=== PATIENT | male | born 1980 | race Caucasian/White ===

== ENCOUNTER 2019-12-07 22:55 | Inpatient (IN) | payer OTHER, SELFPAY ==
[2019-12-07 23:17] VITALS: BP 131/70; PULSE 76; RESP 17; TEMP 36.8; O2SAT 99; BMI 21.2
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
[2019-12-07] MEDS: ONDANSETRON 4 MG/2 ML INJ IV (23:46)
[2019-12-07] MEDS: SODIUM CHLORIDE 0.9% 1,000 ML 1000 ML IV (23:47)
[2019-12-07] MEDS: MORPHINE 4 MG/ML INJ IV (23:49)
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
[2019-12-07 23:58] LABS: Hematocrit 37.5 % (41-53); Hemoglobin 12.3 g/dL (13.5-17.5); Mean Corpuscular HGB Conc 32.8 % (30-36); Mean Corpuscular Hemoglobin 27.2 PG (26-34); Mean Corpuscular Volume 82.7 fL (80-100); Platelet Count 738 X10^3/uL (150-400); Red Blood Cell Count 4.53 X10^6/uL (4.5-5.9); Red Cell Distribution Width 15.1 % (11.6-14.8); White Blood Cell Count 9.1 X10^3/uL (4.5-11.0)
[2019-12-08] VITALS (7 sets, daily range): BP systolic 110–114; BP diastolic 63–69; PULSE 45–57; RESP 15–48; TEMP 36.1–36.6; O2SAT 97–100; BMI 20.8
[2019-12-08 00:04] LABS: Add Manual Diff / Slide Review YES; Alanine Aminotransferase 32 IU/L (<50); Albumin 3.4 g/dL (3.5-5.0); Alkaline Phosphatase 98 U/L (38-126); Aspartate Aminotransferase 30 IU/L (17-59); BUN Creatinine Ratio 28.6 (6-22); Bilirubin Total 0.4 mg/dL (0.2-1.3); Blood Urea Nitrogen 16 mg/dL (9-20); Calcium 8.6 mg/dL (8.4-10.2); Carbon Dioxide 29 mmol/L (22-32); Chloride 103 mmol/L (98-107); Estimated Glomerular Filt Rate > 60.0 mL/min (>60); Globulin 3.4 g/dL (1.7-4.1); Glucose 133 mg/dL (70-100); HEMOLYSIS 31 (0-50); Lipase 27 U/L (23-300); Sodium 135 mmol/L (137-145); Total Protein 6.8 g/dL (6.3-8.2)
[2019-12-08 01:14] LABS: Neutrophils Absolute Manual 2730 /uL (3000-5900); Total Cells Counted 100
[2019-12-08 01:15] LABS: Anisocytosis 1+
[2019-12-08 01:31] LABS: Platelet Estimate Increased on smear
[2019-12-08 01:36] LABS: Prothrombin Time 11.5 SECONDS (10.1-12.7)
[2019-12-08 01:38] LABS: PTT Partial Thromboplastin Tim 31 SECONDS (26.4-36.2)
[2019-12-08] MEDS: MORPHINE 2 MG/ML INJ IV ×6 (02:11→22:40)
[2019-12-08 02:24] LABS: COVID19 -Nasal RAPID Negative (Negative)
[2019-12-08] MEDS: SODIUM CHLORIDE 0.9% 1,000 ML 125 ML IV ×3 (02:28→09:46)
--- NOTE | 2019-12-08 03:04 | PC.NURSE ---
Pt. arrived to the unit via wheelchair. Pt. is alert and oriented, afebrile, lungs CTA slightly diminished on the bases and tends to breath shallow due to pain from his necrotic spleen. Pt. denies N/V, abd. tender with pain rate bet- 3-4/10 and referred pain to his left shoulder with same pain rating. Pt. had Morphine in ER just before transfer to the floor. He states he can tolerate 5/10 pain. Informed pt. that he can have Morphine IV q4h which with be next due around 6 am. Oriented to room, bed control and call light use and instructed to call if need to get OOB to use the restroom. Pt. reluctantly agreed to calling for help to use the bathroom stating he is capable of doing so. Call light within reach, and informed pt. also that he can not have anything to eat or drink for possible surgery in am. Pt. ok with it.
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
[2019-12-08] MEDS: MAGNESIUM HYDROXIDE 30 ML UDC PO (10:26)
[2019-12-08] MEDS: IBUPROFEN 600 MG TABLET PO (10:26)
[2019-12-08] MEDS: DEXTROSE 5%-LACTATED RINGERS 1,000 ML 84 ML IV ×2 (10:34→20:48)
[2019-12-08 12:15] LABS: Procalcitonin < 0.05 ng/mL (<0.5)
[2019-12-08] MEDS: MAGNESIUM CITRATE 300 ML SOLUTION 150 ML PO (12:34)
--- NOTE | 2019-12-08 15:46 | DIET.PN ---
Addendum entered by Elizabeth Watters 12/08/19 16:12: Sending ONS Satya c clear liquid diet to support PCM Original Note: Dietary Progress Note Assessment: 39y M admitted as abd drain was not working referred to nutrition for reported 20# weight loss over past 1.5mo. Pt fell off a roof 2mo ago leading to vertebral fx and splenic injury later found to be splenic necrosis for which a drain was placed. Pt left AMA from previous facility to come to [place] to be with family and admitted for faulty drain and px. Pt reports weight loss due to all the issues with his abdominal surgeries. Pt reports being confident once the drain is fixed he will eat normally again and doesn't feel worried. Pt states he is hungry and is not looking forward to another meal of jello and broth before surgery. Pt is current every day cigarette smoker. HT: 182.8cm WT: 69.7kg UBW: 78kg (-11.5% unintentional in 6w, severe) BMI: 20.8 Labs: Cr 0.56 L, alb 3.4 L MNA: 8 at risk for malnutrition Luis Carlos: 16 Nutrition Diagnosis: Severe Acute PCM r/t poor appetite and surgical complications aeb 11.5% unintentional weight loss in 6w (severe), BMI 20.8 (borderline low for age), pt reports abd px and <50% EERs for >1w, pt currently NPO awaiting third abd surgery in 6w to address necrotic spleen, nutrition related lab values Cr 0.56 L, alb 3.4 L, mild to moderate subcutaneous fat losses. Interventions: 1. Discussed meal ordering at hospital once pt is able to eat. 2. Recc high pro MNT for 2w post-surgical to support nutritional repletion and wound healing. Diet Order: NPO awaiting surgery EER: 2,000 kcal (30kcal/kg per PCM), 90g PRO (1.3g/kg per PCM) Monitoring/Evaluations: if POs <75%, recc ONS Ensure or high pro yogurt smoothie from kitchen
--- NOTE | 2019-12-08 19:03 | PC.NURSE ---
Patient resting in bed most of the shift. Up to bathroom independently. Lower abd pain controlled well with IVP morphine. Sanya drain with scant amount of bloody drainage. Patient tolerating clear liquid diet well. Patient has been A&O, calm and cooperative. Patient is resting in bed at this time.
[2019-12-09] VITALS (17 sets, daily range): BP systolic 102–167; BP diastolic 57–97; PULSE 47–67; RESP 10–22; TEMP 36.1–36.8; O2SAT 96–100; BMI 20.8
[2019-12-09] MEDS: MORPHINE 2 MG/ML INJ IV ×2 (02:54→07:20)
--- NOTE | 2019-12-09 08:48 | PC.NURSE ---
Addendum entered by Jennifer Babcock R.N. 12/09/19 13:47: Pt to room 229 from surgery at 1245. Awake and oriented x3, intermittently moaning/tearful, reporting pain to abdomen. Medicated with toradol per emar. EVELIN drains (left and right) both compressed and patent draining serosanguinous fluid. Dressings to abdomen C/D/I. SpO2 94-98% on RA. Call light within reach and bed alarm on. Original Note: Day Shift Pt to surgery at ~ 0840. Signed consent noted on chart.
[2019-12-09] MEDS: LACTATED RINGERS 1,000 ML 42 ML IV ×2 (08:53→11:11)
[2019-12-09] MEDS: CEFAZOLIN 2 GM/100 ML FROZ.PIGGY IV (09:25)
[2019-12-09] MEDS: BUPIVACAINE 0.5% (PF) VIAL 30 ML INJ (10:03)
--- NOTE | 2019-12-09 10:08 | SUR.OPER ---
Lithotomy on padded OR bed, head on pillow, arms secured on padded arm boards at <90 degrees abduction. Legs secured in padded yellow fins stirrups.
[2019-12-09] MEDS: ONDANSETRON 4 MG/2 ML INJ IV (11:56)
--- NOTE | 2019-12-09 11:57 | PM.OP.1 ---
Operative Date/Time/Diagnoses Date of procedure: 12/09/19 Time of procedure: 11:57 Pre-op diagnosis: History of splenic trauma with sergio splenic hematoma chronic verses abscess. 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 Same procedure as scheduled: Yes Indications: Abdominal pain with a drain in the left flank. CT revealed thickened material that is unlikely to be treated with a drain. The patient was taken to the operating room after evacuating his intestines with a bowel prep. Surgeon: Sergio Stockton Click Yes if Unassisted: Yes Anesthesia Type: General Operative Notes Findings: Fairly large collection of necrotic appearing material probably representing portions of spleen and an old hematoma. Patient also had a fair amount of old blood tinged fluid in the peritoneal cavity on entrance. Drains were placed in the left upper quadrant and in the pelvis. Closure Type: primary Specimen(s): none sent Prosthetic devices, grafts, tissues, transplants, or devices: None Applied: drain(s) (TWO 10 mm Douglas-Ambrocio drains. One in left upper quadrant 1 in the pelvis.) Estimated Blood Loss (mL): 20 Blood products transfused: none Procedure in detail: The patient was placed supine on the operating room table and underwent general endotracheal anesthesia. A [place] was placed and he was put in low lithotomy and prepped and draped in the usual fashion. The drain was prepped with chlorhexidine alcohol after scrubbing his entire abdomen and the drain with Betadine soap. In draping however the drain insertion site was excluded from the operative field. Local anesthetic was infiltrated beneath the umbilicus and a curvilinear incision was made. Was carried down under direct vision in the peritoneal cavity. Stay sutures of 0 Vicryl were placed in the fascia. An 11 mm cannula was inserted into the abdomen. The abdomen contained a fair amount of old blood tinged fluid. Much of it resided in the pelvis. I could not see the drain coming through the abdominal wall. Two additional ports were placed. One was in the midline in the upper abdomen and 1 is send her the costal margin on the left. Using principally blunt dissection I took down adhesions of omentum to the sidewall and to this cavity located in the left upper quadrant. The cavity wall was apparent and quite thickened. I was able to enter a cavity without difficulty and it contained no free fluid.We then loosened the string on the pigtail catheter and removed the catheter. There was no purulence anywhere in the left upper quadrant or in the cavity. There was appearing tissue however. This probably also represented some old hematoma which had organized. I widened the opening into this cavity and suction the material out. I then carefully irrigated and suctioned the fluid free. I decided to remove the anterior wall of this cavity so it would not close and seal. This was done with sharp dissection. There was no bleeding cutting into this wall of the collection. I took a fair amount of it but not all of it off the diaphragm using blunt dissection. There was also omentum attached medially which was taken down bluntly. Feeling that I had removed as much as safely could be accomplished (I left the back wall of this cavity intact due to the fact it was probably attached in places to the residual spleen as well as to stomach and possibly colon.) I took down some adhesions in the right upper quadrant and a portion of the falciform ligament which appeared to be tenting the liver and holding it up in the air. With this accomplished there were no other significant adhesions in the abdomen. I irrigated both upper quadrants and suction free the fluid. I irrigated the mid abdomen and allow the fluid to flow into the pelvis where suctioned it out. I decided to place a drain in the pelvis in the left upper quadrant. I used the left subcostal port site for the drain in left upper quadrant and created a low midline port site from which the pelvic 10 mm Douglas-Ambrocio egress through the skin. These were secured with 3 0 nylon sutures. The air was evacuated and the ports removed. The 0 Vicryl sutures were elevated at the umbilical fascia and a 2 0 PDS was placed between them. The Vicryl sutures were tied along with the PDS. The wounds(they remain 2, the umbilical and the upper midline incision) were closed with a 4 0 Vicryl subcuticular stitch and Steri-Strips. Dressings were applied in all areas. An additional 2 0 PDS was placed to attempt to control little bit of skin is oozing around the left upper quadrant drains site. The patient was awakened, extubated and taken the recovery area in good condition. Complications: none Post-operative Condition: stable Disposition: PACU Plan for aftercare: To the floor
[2019-12-09] MEDS: fentaNYL 100 MCG/2 ML INJ IV ×2 (12:00→12:07)
[2019-12-09] MEDS: LORazepam 2 MG/ML INJ 0.25 MG IV (12:05)
[2019-12-09] MEDS: OXYCODONE IR 5 MG TABLET PO ×2 (12:15→12:34)
--- NOTE | 2019-12-09 12:38 | CM.DANOTE ---
Addendum entered by Leni Gray R.N. 12/09/19 14:00: Patient is back in his room post surgery, but has been in pain, and resting at this time. New drains placed. Will attempt to check in with patient tomorrow. Original Note: DCP: Case received, EMR reviewed. Attempted to meet with patient, but he is currently in surgery. Placed name of this funeral planner on white board in patient's room. Obtained history from patient's chart, ER visit and history and physical. Was also able to review collection note from admission counselor. DCP assessment completed based on the information currently available. Patent is a 39 year old male who admitted yesterday morning to the care of the hospital/surgical team. PCP: Unknown at this time. Payer: [place] Medicaid. Patient came to the hospital via private vehicle secondary to having abdominal pain, and concerns about his abdominal drain. According to notes, patient had originally fell from a roof approximately 6 weeks ago, and was seen in [place], [place]. His spleen was embolized and he was having ongoing bleeding. After this was controlled, he was discharged approximately a month later. He then went to a healthcare provider in [place], where he currently resides, and he noted fluid collection in his left upper quadrant. A percutaneous drain was placed, and according to note, signed himself out AMA with a drain in place to come here to [place] to see family. No family is listed in contact, only friends. Patient came here with abdominal pain and indicated that the drain was not working. He is currently in surgery. Have not been able to converse with patient as of yet, but he is independent at baseline. He does have [place] Medicaid, and he does not qualify for [employer] here in this state. Billing department is working with [place] Medicaid and have attempted to reach out to them about coverage for services. Have not yet heard updated. According to notes, patient did not have his insurance card with him. P: DCP to continue to follow, and will attempt to see patient after surgery. May not be today, will depend upon his recovery. Will be available for any needs. Leni Gray RN/Cement Breaker
[2019-12-09] MEDS: LACTATED RINGERS 1,000 ML 125 ML IV ×2 (13:08→21:19)
[2019-12-09] MEDS: KETOROLAC 30 MG/ML VIAL IV (13:36)
[2019-12-09] MEDS: MORPHINE 4 MG/ML INJ IV ×2 (16:03→20:09)
--- NOTE | 2019-12-09 17:50 | PC.NURSE ---
Evening shift note: A/O x3, intermittently moaning/tearful, reporting pain to abdomen, medicated with Morphine per orders, EVELIN drains (left and right) both compressed and patent draining serosanguinous fluid. Dressings to abdomen CDI, SpO2 94-98% on RA. No further needs at this time, bed low and locked, call light within reach, will continue to monitor.
[2019-12-09] MEDS: GABAPENTIN 300 MG CAPSULE PO (20:10)
[2019-12-10] VITALS (8 sets, daily range): BP systolic 107–133; BP diastolic 63–83; PULSE 43–55; RESP 16–20; TEMP 36.2–37.3; O2SAT 96–100
[2019-12-10] MEDS: MORPHINE 4 MG/ML INJ IV ×6 (00:01→21:20)
[2019-12-10] MEDS: LACTATED RINGERS 1,000 ML 125 ML IV (05:02)
--- NOTE | 2019-12-10 06:06 | PC.NURSE ---
manager sas note: Patient slept well throughout the night requiring pain medication x2 with 4mg IV Morphine. Patient's abdomen soft, tender with positive bowel sounds and flatus present. Lower EVELIN drain dressing changed this AM due to old, moderate amount of dry blood on dressing. JPs with minimal output. Patient independent in room, despite education on calling for assistance. VSS, on RA. Patient remains on clear liquids and tolerating without any n/v. Family present at bedside. Currently, patient is sleeping. No distress noted.
[2019-12-10] MEDS: KETOROLAC 30 MG/ML VIAL IV ×3 (07:22→19:05)
[2019-12-10 07:58] LABS: Add Manual Diff / Slide Review NO; Basophils Absolute Auto 0 /uL (0-100); Basophils Percent Auto 0.3 % (0-2); Eosinophils Absolute Auto 100 /uL (0-450); Eosinophils Percent Auto 0.5 % (2-4); Hemoglobin 11.6 g/dL (13.5-17.5); Lymphocytes Absolute Auto 4300 /uL (1100-4500); Lymphocytes Percent Auto 26.6 % (25-40); Mean Corpuscular HGB Conc 32.3 % (30-36); Mean Corpuscular Hemoglobin 26.5 PG (26-34); Mean Corpuscular Volume 82.2 fL (80-100); Monocytes Absolute Auto 900 /uL (0-900); Monocytes Percent Auto 5.4 % (3-14); Neutrophils Absolute Auto 10900 /uL (1500-7000); Neutrophils Percent Auto 67.2 % (50-75); Platelet Count 675 X10^3/uL (150-400); Red Blood Cell Count 4.39 X10^6/uL (4.5-5.9); Red Cell Distribution Width 14.9 % (11.6-14.8); White Blood Cell Count 16.2 X10^3/uL (4.5-11.0)
[2019-12-10] MEDS: SENNOSIDES 8.6 MG TABLET 17.2 MG PO (08:57)
[2019-12-10] MEDS: GABAPENTIN 300 MG CAPSULE PO ×2 (08:57→21:21)
[2019-12-10] MEDS: ENOXAPARIN 40 MG/0.4 ML SYRINGE SUBCUT (08:57)
--- NOTE | 2019-12-10 10:23 | CM.DPC ---
DCP Cont: Checked in with patient this morning. He was sitting up in bed, alert and oriented. Confirmed that he is staying with family, while he is here. He is independent. Confirmed that he has Medicaid through [place], and stated that his sister should be bringing his insurance card this afternoon. Updated nurse, Nidhi, care management can copy if received. Patient mentioned that surgeon indicated that he may be going home in the next couple of days. He plans to stay with family for a couple of days and go back home to [place]. P: DCP to continue to follow for any needs. Leni Gray RN/Certified Massage Therapist
--- NOTE | 2019-12-10 10:55 | PM.PN.1 ---
Subjective Subjective Date Patient Seen: 12/10/19 Time Patient Seen: 10:55 Interval history: No acute events over night. Tolerating clear liquids. Passing flatus. Exam Vital Signs (past 8 hours): - 12/10/19 05:26 12/10/19 08:15 12/10/19 10:44 Temperature 97.6 F 97.7 F Pulse Rate 55 L 49 L 50 L Respiratory Rate 20 19 16 Blood Pressure 114/63 108/63 Pulse Oximetry 98 97 98 Oxygen Delivery Method Room Air Oxygen Flow Rate 0 Narrative Exam Narrative: GENERAL: Alert, comfortable. Appears stated age. Answers questions promptly and appropriately. Vital signs noted. HENT: Normocephalic, atraumatic. Hearing intact. EYES: Conjunctiva pink, sclera white, no periorbital swelling. CARDIOVASCULAR: Regular rate. No pedal edema. RESPIRATORY: Non-tachypneic, breathing comfortably on room air. GASTROINTESTINAL: Abdomen soft and non-distended, dressings clean and intact, EVELIN drains with scant sanguinous output MUSCULOSKELETAL: Equal tone and mass bilaterally. SKIN: Warm, dry, soft, appropriate color for ethnicity. No other lesions, rashes, or wounds. NEURO: Alert and Oriented X 3. No gross sensory deficits, or cognitive issues. PSYCH: Appropriate affect and mood. Objective Labs Result Diagrams: 12/10/19 07:40 12/07/19 23:40 Labs: Laboratory Results - last 24 hr 12/10/19 07:40 WBC 16.2 H RBC 4.39 L Hgb 11.6 L Hct 36.0 L MCV 82.2 MCH 26.5 MCHC 32.3 RDW 14.9 H Plt Count 675 H Neut % (Auto) 67.2 Lymph % (Auto) 26.6 [place] % (Auto) 5.4 Eos % (Auto) 0.5 L Baso % (Auto) 0.3 Neut # (Auto) 57646 H Lymph # (Auto) 4300 [place] # (Auto) 900 Eos # (Auto) 100 Baso # (Auto) 0 Assessment & Plan Assessment and plan (1) Smoker: Problem details: Smoking cessation teaching. Nicoderm patch. Status: Acute (2) Intra-abdominal abscess: Status: Acute (3) History of traumatic rupture of spleen: Status: Acute Assessment & Plan narrative: Postop day 1 status post laparoscopic drainage of abdominal hematoma and abscess. Doing well. Pain well controlled, tolerating a clear liquid diet. Labs are appropriate. Plan: Advance diet as tolerated Ambulate Drain management Dispo pending the above, likely tomorrow Quality VTE Deep Vein Thrombosis/Pulmonary Embolism Present on Admission: No
--- NOTE | 2019-12-10 14:53 | PC.NURSE ---
Transfer Note Pt transferred to room 223 from 229 at 1440. All belongings with pt. Transferred via bed. Pt has been independent in room, walking often in room. SpO2 in the upper 90s RA. EVELIN drains compressed and patent. Dressings are all C/D/I. Advanced diet to general, tolerating well without nausea or increased pain. Passing flatus. Call light within reach, using appropriately to make needs known.
[2019-12-11 00:15] VITALS: BP 127/65; PULSE 51; RESP 18; TEMP 36.7; O2SAT 97
[2019-12-11] MEDS: MORPHINE 4 MG/ML INJ IV ×3 (01:45→11:34)
[2019-12-11] MEDS: KETOROLAC 30 MG/ML VIAL IV ×2 (04:13→10:40)
[2019-12-11 04:40] VITALS: BP 139/88; PULSE 45; RESP 18; TEMP 36.7; O2SAT 98
[2019-12-11 07:23] VITALS: BP 130/77; PULSE 47; RESP 19; TEMP 36.4; O2SAT 99
[2019-12-11] MEDS: GABAPENTIN 300 MG CAPSULE PO (09:22)
[2019-12-11] MEDS: SENNOSIDES 8.6 MG TABLET 17.2 MG PO (09:22)
[2019-12-11] MEDS: ENOXAPARIN 40 MG/0.4 ML SYRINGE SUBCUT (09:22)
[2019-12-11] MEDS: SODIUM CHLORIDE 0.9% FLUSH 10 ML IV (09:23)
[2019-12-11] MEDS: IBUPROFEN 600 MG TABLET PO (12:02)
[2019-12-11] MEDS: cephALEXin 250 MG CAPSULE 500 MG PO ×2 (12:02→17:11)
[2019-12-11 12:12] LABS: Add Manual Diff / Slide Review NO; Basophils Absolute Auto 200 /uL (0-100); Basophils Percent Auto 1.7 % (0-2); Eosinophils Absolute Auto 400 /uL (0-450); Hemoglobin 12.3 g/dL (13.5-17.5); Lymphocytes Absolute Auto 4100 /uL (1100-4500); Lymphocytes Percent Auto 38.3 % (25-40); Mean Corpuscular HGB Conc 32.4 % (30-36); Mean Corpuscular Hemoglobin 26.7 PG (26-34); Mean Corpuscular Volume 82.4 fL (80-100); Monocytes Absolute Auto 900 /uL (0-900); Neutrophils Absolute Auto 5200 /uL (1500-7000); Platelet Count 701 X10^3/uL (150-400); Red Blood Cell Count 4.61 X10^6/uL (4.5-5.9); Red Cell Distribution Width 15.1 % (11.6-14.8); White Blood Cell Count 10.8 X10^3/uL (4.5-11.0)
[2019-12-11 12:42] VITALS: BP 140/82; PULSE 47; RESP 20; TEMP 36.4; O2SAT 99
[2019-12-11] MEDS: OXYCODONE IR 10 MG TABLET PO (13:45)
--- NOTE | 2019-12-11 14:53 | PC.NURSE ---
Removed both drains per provider order. Pt tolerated well. Placed gauze and covered right drain site with tegaderm and left with paper tape. Left drain site oozed moderate amount of blood after removal. Pressure applied and site redressed. Will monitor.
[2019-12-11 16:42] VITALS: BP 140/62; PULSE 52; RESP 16; O2SAT 99
--- NOTE | 2019-12-11 17:02 | P.DS_ITS ---
History of Present Illness History of Present Illness Chief complaint: abdominal drain is not working right Narrative: The patient is a gentleman who fell from a roof 6 weeks ago and was seen in [place]. His spleen was embolized presumptively because of a blush in ongoing bleeding. That was controlled he was discharged and a month later presented to the healthcare providers in his home in [place] for abdominal pain was found to have a large collection in the left upper quadrant. Four days ago a percutaneous drain was placed in this collection but he signed himself out Against Medical Advice with a drain in place to come and visit his children in this area. He presented to our emergency room and after scanning was admitted. He complains of abdominal pain especially in left upper quadrant but it is warren erable. He said the drain stopped draining out when he was in route to the area. He has had no prior abdominal operations. Discharge Providers Provider Date of admission: 12/08/19 01:58 Discharge Date: 12/11/19 Consults: 12/08/19 08:00 Consult to Dietitian, Adult Routine Comment: Reason For Exam: weight loss >20 lbs in a month and a half 12/09/19 12:49 Consult to Discharge Planning Routine Comment: Discharge provider: Sergio Stockton MD Summary Hospital Course Discharge Diagnosis: Subacute splenic trauma with partial necrosis and sergio splenic hematoma. 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 Hospital Course: The patient was admitted and given a bowel prep. He was taken to the operating room where he had debridement of a large sergio splenic hematoma and any tissue. Drains were placed. Postoperatively did quite well. He was eating everything he could and was tolerating a general diet well. His pain was moderate and he was discharged on oxycodone for pain which he has tolerated in the past and tolerated during his hospitalization despite his reactions to hydrocodone and codeine. He plans to return to [place] and then [place] and I recommended that he follow-up in those locations. He is to take an aspirin a day due to his elevation of his platelet count to over 600,000. He is to take a multiple vitamin with iron due to his blood loss. He is to limit his activity for the next 4 weeks. Though patient is thin and his albumin slightly low on admission, I do not believe he has acute protein calorie now nutrition. At operation was quite mus cular but he just has a paucity of fat. Exam Vital Signs (past 8 hours): - 12/11/19 12:42 Temperature 97.6 F Pulse Rate 47 L Respiratory Rate 20 Blood Pressure 140/82 Pulse Oximetry 99 Oxygen Delivery Method Room Air Oxygen Flow Rate 0 Narrative Exam Narrative: Lungs are clear. Good effort. Heart regular rate and rhythm without murmur gallop. Abdomen is scaphoid soft nontender without mass. Op sites look fine. Objective Labs Result Diagrams: 12/11/19 12:06 12/07/19 23:40 Labs: Laboratory Results - last 24 hr 12/11/19 12:06 WBC 10.8 RBC 4.61 Hgb 12.3 L Hct 38.0 L MCV 82.4 MCH 26.7 MCHC 32.4 RDW 15.1 H Plt Count 701 H Neut % (Auto) 48.0 L Lymph % (Auto) 38.3 [place] % (Auto) 8.0 Eos % (Auto) 4.0 Baso % (Auto) 1.7 Neut # (Auto) 5200 Lymph # (Auto) 4100 [place] # (Auto) 900 Eos # (Auto) 400 Baso # (Auto) 200 H Discharge Plan Discharge Plan Patient Disposition: Home Discharge comment: Your operation went well. I expect you to have a full recovery. You are missing part of her spleen and I do not know how much of the rest that remains is functional. Therefore you may be prone to infections. Should you develop a cough and it seems to be getting worse she should see your doctor and make sure he knows that you are missing a portion of your spleen. Should you develop shaking chills, soaking night sweats or fever see a doctor immediately as these are signs of a possible abscess in your abdomen. You should take an aspirin a day. Your platelet count is much higher than normal because your spleen is no longer filtering your platelets like it norm ally would. This may make you prone to forming clots. Taking multiple vitamin with iron every day for at least the next 2 months. Follow-up with your family doctor when you return to either [place] or [place]. Discharge orders & Medications Prescriptions: New oxycodone 5 mg tablet See Rx Instructions .ROUTE .COMPLEX PRN (Reason: painful procedure) Qty: 20 RF: 0 Continued amoxicillin-pot clavulanate 875-125 mg tablet 1 tab PO BID RF: 0 Diet/Activity/Treatments Diet: Diet as Tolerated Activity: Do not lift over 10 lb or strain for the next 4 weeks. You may walk. Skin/Wound/Dressing Care Report to your healthcare provider any signs of infection, such as:: chills, fever, night sweats, increased pain, unusual drainage and unusual redness Dressing: You may remove the gauze bandages tomorrow and shower. Cover those 2 wounds with the drains were with Band-Aids for the next week. You may remove the small white strips of tape in 2 weeks if they have not fallen off already. Quality VTE Deep Vein Thrombosis/Pulmonary Embolism Present on Admission: No
[2019-12-11] MEDS: DOCUSATE 100 MG CAPSULE PO (17:11)
[2019-12-11] MEDS: OXYCODONE IR 5 MG TABLET 10 MG PO (17:11)
--- NOTE | 2019-12-11 17:38 | PC.NURSE ---
Discharge Note- Patient discharged home. Discharge instructions and education reviewed with patient and signed. IV line removed and bandaid applied. Patient dressed and packed up all personal items. Rx sent to [facility]. Patient left with all personal belongings to [employer] car at 1738.
== END 2019-12-11 17:38 | disposition home or self-care (01) | DRG 804 ==
LOC: ED 12-08 01:19 → ICU 12-08 08:19 → AC 12-10 14:50
PROVIDERS: Admitting Provider Specialist; Emergency Provider Emergency Medicine; Referring Provider Emergency Medicine; Visit Provider Specialist
PROC: [UNRECOGNIZED PROCEDURE] (CPT 49320; principal; 2019-12-09 09:00)
DX: D73.5 Infarction of spleen (principal); D73.3 Abscess of spleen; D50.0 Iron deficiency anemia secondary to blood loss (chronic); F17.210 Nicotine dependence, cigarettes, uncomplicated; Z20.828 Contact with and (suspected) exposure to other viral communicable diseases
CPT/HCPCS: 36415; 49322; 74177; 80053; 83690; 84145; 85025; 85610; 85730; 86850; 86900; 86901; 87070; 87075; 87077; 87147; 87186; 87205; 87635; 87797; 93005; 94760; 94762; 96361; 96374; 96375; 99222; 99284; J0690; J1100; J1170; J1650; J1885; J2060; J2250; J2270; J2405; J2704; J3010; J7121; Q9967